=== PATIENT | male | born 1985 | race American Indian/Alaskan Native ===

== ENCOUNTER 2020-09-28 15:59 | Outpatient (CLI) | payer OTHER ==
--- NOTE | 2020-09-28 20:11 | XRay Report ---
CHEST 1 VIEW 09/28/2020 6:13 PM INDICATION / CLINICAL INFORMATION: MENTAL HEALTH. COMPARISON: None available. FINDINGS: SUPPORT DEVICES: None. HEART / MEDIASTINUM: No significant abnormality. LUNGS / PLEURA: No significant pulmonary or pleural abnormality. No evidence of tuberculosis. ADDITIONAL FINDINGS: No significant additional findings. IMPRESSION: No acute abnormality. Signer Name: Carlos Hale MD Signed: 09/28/2020 8:10 PM Workstation Name: [id number]
--- NOTE | 2020-09-28 20:19 | XRay Report ---
LUMBAR SPINE 5 VIEWS INDICATION / CLINICAL INFORMATION: BACK PAIN COMPARISON: None available. FINDINGS: BONES / JOINT(S): No acute fracture or subluxation. No significant arthritis. SOFT TISSUES: No significant abnormality. ADDITIONAL FINDINGS: None. Signer Name: Carlos Hale MD Signed: 09/28/2020 8:18 PM Workstation Name: [id number]
--- NOTE | 2020-09-28 20:19 | XRay Report ---
STANDING KNEES BILATERALLY ONE VIEW INDICATION / CLINICAL INFORMATION: LEG PAIN COMPARISON: None available. FINDINGS: BONES / JOINT(S): No acute fracture or subluxation. No significant arthritis. SOFT TISSUES: No significant abnormality. ADDITIONAL FINDINGS: None. Signer Name: Carlos Hale MD Signed: 09/28/2020 8:19 PM Workstation Name: [id number]
== END 2020-09-28 16:00 | disposition home or self-care (01) ==
LOC: XRAY 15:59
PROVIDERS: ATTEND Internal Medicine
DX: M54.5 Low back pain (principal); M79.606 Pain in leg, unspecified; R56.9 Unspecified convulsions
CPT/HCPCS: 71045; 72110; 73565

== ENCOUNTER 2021-11-01 03:05 | Emergency (ER) | payer SELFPAY ==
--- NOTE | 2021-11-01 03:22 | Emergency Department Report ---
<RYAN LOAIZA - Last Filed: 11/01/21 09:58> ED Psych HPI - General Chief Complaint: Psych Stated Complaint: hearing voices Time Seen by Provider: 11/01/21 03:19 - Related Data Previous Rx's Medication Instructions Recorded Last Taken Type Paliperidone Palmitate [Invega 156 mg IM ONCE #1 ml 11/01/21 Unknown Rx Sustenna] QUEtiapine [SEROquel] 100 mg PO BID #60 tab 11/01/21 Unknown Rx Allergies Allergy/AdvReac Type Severity Reaction Status Date / Time haloperidol [From Haldol] Allergy Unknown Verified 11/01/21 03:29 risperidone [From Risperdal] Allergy Unknown Verified 11/01/21 03:29 ED Past Medical Hx - Medications Home Medications: Home Medications Medication Instructions Recorded Confirmed Last Taken Type Paliperidone Palmitate [Invega 156 mg IM ONCE #1 ml 11/01/21 Unknown Rx Sustenna] QUEtiapine [SEROquel] 100 mg PO BID #60 tab 11/01/21 Unknown Rx ED Medical Decision Making - Lab Data Result diagrams: 11/01/21 03:32 11/01/21 03:32 - Medical Decision Making Patient has been cleared for discharge by psychiatric team. ED Disposition Clinical Impression: Depression, Cocaine abuse Disposition: 01 HOME / SELF CARE / HOMELESS Is pt being admited?: No Does the pt Need Aspirin: No Condition: Stable Additional Instructions: Professional and Agency Contacts To help [facility](03/06) [place] Crisis Line: Suicide Prevention Line: Crisis Text Line: Text START to [phone] Emergency: 911 Outpatient COMMUNITY Behavioral Health Resources: JOYCELYNB: [facility] [address], [place] [address] [place]: [facility] [address] [place] [address] [facility] - [address] [place] [address] Saturday thru Saturday - 8am - 5pm JAYE: [facility] Address: [address], [place] [address] [facility] Address: [address] [place] [address] Saturday thru Saturday- 7am-2pm [facility] Address: [address] [place] [address] Saturday thrsaturday: 8:30AM-5PM In case of an emergency, please contact the following numbers: [place] Crisis and Access Line: Number: Crisis Text Line: (Text START) Number: 154605 Suicide Prevention Line: Number: Emergency Number: 911 SUBSTANCE ABUSE PROGRAMS: [facility]: Location: [place], [place] [facility] Address: [address] [place] [address] [facility] Address: [address] [place] [address] [facility]: Address: [address] [place] [address] [facility] Community: Address: [address] [place] [address] [facility] Address: [address] [place] [address]. Please contact above numbers to attempt placement into free based program. Medicaid Programs: [facility]: Address: [address] [place] [address] [facility]: Address: [address] [place] [address] Prescriptions: Paliperidone Palmitate [Invega Sustenna] 156 mg IM ONCE #1 ml QUEtiapine [SEROquel] 100 mg PO BID #60 tab Referrals: PRIMARY CARE, [Primary Care Provider] - 3-5 Days <OMARI TOLLIVER - Last Filed: 11/01/21 22:23> ED Psych HPI - General Source: EMS Mode of arrival: Stretcher - History of Present Illness Initial Comments: Patient is 36 years old male with history of schizophrenia. Patient presented to the ER for mental health evaluation. Patient stated that he has been depressed and he is going through a lot of stress in his life. Patient stated that he is out of his antipsychotic medication. Patient denies any suicidal ideation. He also denied any homicidal ideation. He reported to the nurse that he is hearing voices but he denied that when I talked to him. No visual hallucination. MD Complaint: feels depressed -: days(s) Associated Psychiatric Symptoms: depression, auditory hallucinations ED Review of Systems ROS: Stated complaint: hearing voices Other details as noted in HPI Comment: All other systems reviewed and negative Constitutional: denies: chills, fever Respiratory: denies: cough, shortness of breath, SOB with exertion, SOB at rest Cardiovascular: denies: chest pain, palpitations Gastrointestinal: denies: abdominal pain, nausea, vomiting Musculoskeletal: denies: back pain ED Past Medical Hx - Past Medical History Previous Medical History?: No Additional medical history: anxiety, bipolar, schizophrenia - Surgical History Past Surgical History?: No ED Physical Exam - General Limitations: No Limitations General appearance: alert, in no apparent distress - Head Head exam: Present: atraumatic, normocephalic, normal inspection - Eye Eye exam: Present: normal appearance - Respiratory Respiratory exam: Present: normal lung sounds bilaterally. Absent: respiratory distress, chest wall tenderness - Cardiovascular Cardiovascular Exam: Present: regular rate, normal rhythm, normal heart sounds - GI/Abdominal GI/Abdominal exam: Present: soft, normal bowel sounds. Absent: distended, tenderness, guarding, rebound, rigid, organomegaly, mass, bruit, pulsatile mass, hernia - Extremities Exam Extremities exam: Present: normal inspection, full ROM, normal capillary refill. Absent: tenderness - Back Exam Back exam: Present: normal inspection, full ROM. Absent: CVA tenderness (R), CVA tenderness (L) - Neurological Exam Neurological exam: Present: alert, oriented X3, CN II-XII intact - Psychiatric Psychiatric exam: Present: flat affect. Absent: agitated, homicidal ideation, suicidal ideation - Skin Skin exam: Present: warm, intact, normal color ED Course Vital Signs 11/01/21 11/01/21 11/01/21 03:05 03:24 03:53 Temperature 97.9 F 97.9 F Pulse Rate 70 70 Respiratory 18 20 20 Rate Blood Pressure 144/97 144/97 [Right] O2 Sat by Pulse 99 99 99 Oximetry 11/01/21 11:00 Temperature 98.3 F Pulse Rate 83 Respiratory 20 Rate Blood Pressure 132/80 [Right] O2 Sat by Pulse 99 Oximetry ED Medical Decision Making - Lab Data Result diagrams: 11/01/21 03:32 11/01/21 03:32 - Medical Decision Making Patient is 36 years old male with history of schizophrenia. Patient presented to the ER for mental health evaluation. Patient stated that he has been depressed and he is going through a lot of stress in his life. Patient stated that he is out of his antipsychotic medication. Patient denies any suicidal ideation. He also denied any homicidal ideation. He reported to the nurse that he is hearing voices but he denied that when I talked to him. No visual h allucination. Labs reviewed and is unremarkable except for cocaine and mild alcohol intoxication. Patient is medically cleared to be evaluated by our psychiatric team. Critical care attestation.: If time is entered above; I have spent that time in minutes in the direct care of this critically ill patient, excluding procedure time.
[2021-11-01 04:08] LABS: Basophils # (Auto) 0.1 K/mm3 (0.0-0.1); Basophils % (Auto) 1.9 % (0.0-1.8); Eosinophils # (Auto) 0.1 K/mm3 (0.0-0.4); Hematocrit 44.4 % (35.5-45.6); Hemoglobin 14.4 gm/dl (11.8-15.2); Lymphocytes # (Auto) 1.9 K/mm3 (1.2-5.4); Mean Corpuscular HGB Conc 33 % (32-34); Mean Corpuscular Volume 93 fl (84-94); Monocytes # (Auto) 0.4 K/mm3 (0.0-0.8); Platelet Count 225 K/mm3 (140-440); Red Blood Count 4.79 M/mm3 (3.65-5.03); Red Cell Distribution Width 14.3 % (13.2-15.2)
[2021-11-01 04:23] LABS: Blood Urea Nitrogen 11 mg/dL (9-20); Calcium 9.6 mg/dL (8.4-10.2); Hemolysis Index 21
[2021-11-01 04:27] LABS: Alanine Aminotransferase 43 units/L (7-56)
[2021-11-01 04:40] LABS: BUN/Creatinine Ratio 16; Bilirubin,Direct < 0.2 mg/dL (0-0.2)
[2021-11-01 04:47] LABS: Bilirubin,Urine NEG (Negative); Blood,Urine MOD (Negative); Color,Urine Straw (Yellow); Protein,Urine <15 mg/dL mg/dL (Negative); Urobilinogen,Urine < 2.0 mg/dL (<2.0)
[2021-11-01 04:51] LABS: WBC,Urine < 1.0 /HPF (0.0-6.0)
[2021-11-01 04:54] LABS: Amphetamine Screen,Urine Negative; Benzodiazepines Screen,Urine Negative; Cannabinoid Screen,Urine Negative; Methadone Screen,Urine Negative; Opiate Screen,Urine Negative
[2021-11-01 05:30] LABS: Cocaine Screen,Urine Positive
--- NOTE | 2021-11-01 08:51 | Consultation ---
History of Present Illness - Reason for Consult Consult date: 11/01/21 Reason for consult: hallucinations - History of Present Psychiatric Illness The patient was seen today. He is calm, cooperative and polite. He is a 36y/o male patient who presented to the ER with hallucinations and being out of his meds. He says he's been feeling down since being off of them. He says he takes Invega Sustenna and it's been three months since he had it. The patient says he came here to get it and get his seroquel. The patient says he has a history of schizophrenia. He also verbalizes cocaine use but says he hasn't had it in a month. The patient denies SI/HI or hallucinations of any kind. PAST PSYCHIATRIC HISTORY: Diagnoses: Schizophrenia Suicide attempts or Self-harm behavior: Denies Prior psychiatric hospitalizations: Denies Substance Abuse history: Cocaine Previous psychiatric medications tried: Invega, seroquel Outpatient treatment: yes, but not current PAST MEDICAL HISTORY: unknown Family Psychiatric History: None reported or documented SOCIAL HISTORY Marital Status: Single Living Arrangements: alone Employment Status: Unemployed Access to guns/weapons: Denies Education: History of Abuse:Yes Legal History: Denies REVIEW OF SYSTEMS Constitutional: Negative for weight loss ENT: Negative for stridor Respiratory: Negative for cough or hemoptysis All other systems reviewed and are negative MENTAL STATUS EXAMINATION General Appearance and Behavior: Age appropriate, good hygiene, wearing appropriate clothes. calm, and cooperative Cooperation: Cooperative Psychomotor Behavior: Psychomotor normal Mood: "a little sad" Affect and affective range: Euthymic Thought Process: goal directed Thought Content: None Speech: normal tone and pace Suicidal Ideation: Denies Homicidal Ideation: Denies Hallucinations: Denies Delusions: None elicited Impulse Control: Limited Insight and Judgment: Limited insight and good judgment Memory: Limited Attention: distracted Orientation: a/o x 3 Assessment (1) Schizophrenia (2) Cocaine Use Disorder Treatment Plan Please make sure the patient is given medications prior to discharge Seroqul 100mg po BID Invega Sustenna 234mg IM once Second dose of Invega 156mg should be given in 1 week after first dose. The patient to follow up with outpatient for this to be administered. Medical: per primary Disposition: Do not recommend acute psychiatric inpatient treatment Will sign off. Thanks. Case staffed with Dr. Chahal Medications and Allergies Allergies Allergy/AdvReac Type Severity Reaction Status Date / Time haloperidol [From Haldol] Allergy Unknown Verified 11/01/21 03:29 risperidone [From Risperdal] Allergy Unknown Verified 11/01/21 03:29 Home Medications Medication Instructions Recorded Confirmed Last Taken Type Paliperidone Palmitate [Invega 156 mg IM ONCE #1 ml 11/01/21 Unknown Rx Sustenna] QUEtiapine [SEROquel] 100 mg PO BID #60 tab 11/01/21 Unknown Rx Mental Status Exam - Vital signs Last Vital Signs Temp 97.9 F 11/01/21 03:24 Pulse 70 11/01/21 03:24 Resp 20 11/01/21 03:53 BP 144/97 11/01/21 03:24 Pulse Ox 99 11/01/21 03:53 Results Result Diagrams: 11/01/21 03:32 11/01/21 03:32 Abnormal lab results 11/01/21 11/01/21 11/01/21 Range/Units 03:32 03:32 03:32 Baso % (Auto) 1.9 H (0.0-1.8) % Creatinine 0.7 L (0.8-1.3) mg/dL AST (5-40) units/L Salicylates < 0.3 L (2.8-20.0) mg/dL Acetaminophen (10.0-30.0) ug/mL Plasma/Serum Alcohol (0-0.07) % 11/01/21 11/01/21 11/01/21 Range/Units 03:32 03:32 03:32 Baso % (Auto) (0.0-1.8) % Creatinine (0.8-1.3) mg/dL AST 52 H (5-40) units/L Salicylates (2.8-20.0) mg/dL Acetaminophen 5.0 L (10.0-30.0) ug/mL Plasma/Serum Alcohol 0.08 H (0-0.07) % All other labs normal.
[2021-11-01] MEDS ORDERED: PALIPERIDONE PALMITATE 234 MG/1.5 ML SYRINGE IM ONE (10:00)
[2021-11-01] MEDS ORDERED: QUEtiapine 100 MG TAB PO SCH (10:00)
[2021-11-01 11:01] VITALS: BP 132/80
== END 2021-11-01 11:00 | disposition home or self-care (01) ==
LOC: ED 03:05
DX: F20.9 Schizophrenia, unspecified (principal); F31.9 Bipolar disorder, unspecified; F32.9 Major depressive disorder, single episode, unspecified
CPT/HCPCS: 36415; 80048; 80076; 80307; 81001; 85025; 99284; J2426; 80320; G0480